=== PATIENT | male | born 1970 | race Native Hawaiian/Other Pacific Islander ===

== ENCOUNTER 2017-02-04 09:16 | Outpatient (CLI) | payer OTHER ==
[~2017-02-04 09:16] MED LIST: BENICAR HCT1 TAB PO
== END 2017-02-04 19:06 | disposition home or self-care (01) ==
LOC: US 09:16
DX: R09.1 Pleurisy (principal); R10.11 Right upper quadrant pain

== ENCOUNTER 2017-07-01 12:04 | Outpatient (CLI) | payer OTHER | END 2017-07-01 15:00 | disposition home or self-care (01) | LOC: RAD 12:04 | DX: M79.604 Pain in right leg (principal) ==

== ENCOUNTER 2017-11-06 05:50 | Outpatient (CLI) | payer OTHER | END 2017-11-06 23:48 | disposition home or self-care (01) | LOC: RESP 05:50 → RAD 05:50 | DX: R06.02 Shortness of breath (principal) | CPT/HCPCS: 93005 ==

== ENCOUNTER 2018-02-10 07:33 | Day surgery (SDC) | payer OTHER ==
[2018-02-10 08:24] LABS: POTASSIUM 3.8 mmol/L (3.6-5.2)
[2018-02-10 08:34] LABS: PLATELET COUNT 267 K/uL (142-355)
== END 2018-02-10 10:37 | disposition home or self-care (01) ==
LOC: OR 07:33
PROVIDERS: Internal Medicine
PROC: 0DBM8ZZ Excision of Descending Colon, Via Natural or Artificial Opening Endoscopic (ICD-10-PCS; principal; 2018-02-10)
DX: D12.4 Benign neoplasm of descending colon (principal); R19.4 Change in bowel habit; K62.5 Hemorrhage of anus and rectum; R10.84 Generalized abdominal pain
CPT/HCPCS: 80053; 85027; J2001; J2250; J2704

== ENCOUNTER 2023-01-07 08:49 | Emergency (ER) | payer OTHER ==
[~2023-01-07] VITALS: Ht 175.3 cm; Wt 122.5 kg
[2023-01-07 09:44] LABS: POTASSIUM 3.5 mmol/L (3.6-5.2)
[2023-01-07 09:49] LABS: PLATELET COUNT 275 K/uL (142-355)
[2023-01-07 12:40] VITALS: BP 110/75; TEMP 97.9
== END 2023-01-07 12:40 | disposition home or self-care (01) ==
LOC: ED 08:49
PROVIDERS: Family Medicine
DX: R10.11 Right upper quadrant pain (principal); E11.9 Type 2 diabetes mellitus without complications; K83.1 Obstruction of bile duct; F17.210 Nicotine dependence, cigarettes, uncomplicated
CPT/HCPCS: 80053; 80307; 81002; 82150; 83690; 85027; 99283